=== PATIENT | male | born 1980 | race Caucasian/White ===

== ENCOUNTER 2016-10-10 00:36 | Emergency (ER) | payer OTHER ==
[~2016-10-10] VITALS: Ht 180.3 cm; Wt 163.1 kg
[~2016-10-10 00:36] MED LIST: CETI10TA84 PO; GABA1CAP4 PO; GLC500 PO; LSN/10125 PO
[2016-10-10 00:44] VITALS: TEMP 36.9; Ht 180.3 cm; Wt 163.1 kg
[2016-10-10] MEDS ORDERED: LORAZEPAM 2 MG/ML 1 ML VIAL IV STA (00:58)
[2016-10-10 01:11] VITALS: O2SAT 97
[2016-10-10 01:26] LABS: BASO % 0.6 %; BASO ABS # 0.07 K/uL (0-0.2); COMPLETE YES; HEMATOCRIT 44.3 % (42-52); IG% 0.1 %; LYMPH % 37.5 %; LYMPH ABS # 4.37 K/uL (1.2-3.4); MEAN CORPUSCULAR HGB CONC 35.7 g/dl (32-36); MEAN PLATELET VOLUME 10.4 fL (7.4-10.4); MONO % 7.8 %; PLATELET COUNT 341 K/uL (130-400); RED BLOOD COUNT 5.09 M/uL (4.7-6.1); WHITE BLOOD COUNT 11.66 K/uL (4.8-10.8)
[2016-10-10] MEDS ORDERED: EFFSR75 PO (01:40)
[2016-10-10 02:02] LABS: ALT/SGPT 59 U/L (12-78); BLOOD UREA NITROGEN 12 mg/dl (7-18); CALCIUM 8.6 mg/dl (8.5-10.1); CARBON DIOXIDE 27 mmol/L (21-32); CHLORIDE 105 mmol/L (98-107); GLUCOSE 137 mg/dl (70-99); SODIUM 141 mmol/L (136-145)
[2016-10-10 02:03] LABS: ALKALINE PHOSPHATASE 110 U/L (45-117)
[2016-10-10 02:12] LABS: POTASSIUM 3.7 mmol/L (3.5-5.1)
[2016-10-10 02:16] LABS: AST/SGOT 32 U/L (15-37)
[2016-10-10 02:20] VITALS: BP 136/80; PULSE 66; O2SAT 98
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
--- NOTE | 2016-10-10 02:26 | EMERGENCY ROOM VISIT NOTE ---
ED Visit Note First contact with patient: 00:43 I saw this patient in conjunction with Sandra Schmitt PA-C. I agree with her decision making and treatment plan.
[2016-10-10] MEDS ORDERED: ATIVAN 1MG HOMEPACK PO ONE (02:30)
--- NOTE | 2016-10-10 06:29 | DIAGNOSTIC IMAGING REPORT ---
CHEST ONE VIEW PORTABLE CLINICAL HISTORY: CHEST PAIN dyspnea COMPARISON STUDY: 09/07/2014 FINDINGS: The bones soft tissues and hemidiaphragms are normal. The cardiomediastinal silhouette is normal. The lungs are clear. The pulmonary vasculature is normal. Fullness superior mediastinum unchanged in the prior study. This most likely secondary to patient positioning as well as body habitus IMPRESSION: Negative chest. Electronically signed by: Naren Jones M.D. 10/10/2016 6:27 AM Dictated Date/Time: 10/10/2016 6:27 AM
== END 2016-10-10 02:35 | disposition home or self-care (01) ==
LOC: C.EDB 00:36
DX: F41.9 Anxiety disorder, unspecified (principal); E11.65 Type 2 diabetes mellitus with hyperglycemia; I10 Essential (primary) hypertension; Z79.82 Long term (current) use of aspirin; Z79.84 Long term (current) use of oral hypoglycemic drugs; Z79.899 Other long term (current) drug therapy; Z88.0 Allergy status to penicillin; Z88.8 Allergy status to other drugs, medicaments and biological substances; Z83.3 Family history of diabetes mellitus; Z82.49 Family history of ischemic heart disease and other diseases of the circulatory system

== ENCOUNTER 2016-10-20 22:27 | Emergency (ER) | payer OTHER ==
[~2016-10-20] VITALS: Ht 180.3 cm; Wt 163.0 kg
[~2016-10-20 22:27] MED LIST changes: -CETI10TA84 PO; +EFFSR75 PO; -GABA1CAP4 PO
[2016-10-20 22:28] VITALS: Ht 180.3 cm; Wt 163.0 kg
--- NOTE | 2016-10-20 22:44 | EMERGENCY ROOM VISIT NOTE ---
History Report prepared by Primitivo: Blade Diez Under the Supervision of: Dr. Marcos Naylor M.D. First contact with patient: 22:32 Chief Complaint: WOUND DEHISCENCE Stated Complaint: BELLY BUTTON DISCHARGE, BLEED History of Present Illness The patient is a 36 year old male who presents to the Emergency Room with complaints of persistent belly button discharge that started a few weeks ago. The patient has had similar symptoms in the past where he was able to resolve the symptoms with keeping the area clean and dry. He notes that this time when the foul odor started he tried to keep it clean and dry but his symptoms kept worsening. He presented to his PCP 5 days ago who recommended he try Neosporin on the area. He notes that his symptoms continued to get worse. He also noted some blood in the area. He presented to the ED tonight for further evaluation since his symptoms were getting worse. He notes that he is pre-diabetic and the only change in his medications was adding Ativan which he hasn't taken that many doses of yet. He denies blood in his urine, nausea, vomiting, fevers, or pain at this time. Source of History: patient Onset: few weeks ago Position: abdomen Timing: other (persistent) Associated Symptoms: No fevers, No nausea, No vomiting Note: Other associated symptoms: foul odor Denies: blood in urine, pain Review of Systems See HPI for pertinent positives & negatives. A total of 6 systems reviewed and were otherwise negative. Past Medical & Surgical Medical Problems: (1) Asthma, Unspecified (2) Diab Afia Wo Compl, Type Ii Or Unspec Type, Not Uncntrld (3) Hypertension Nos (4) Morbid obesity with BMI of 50.0-59.9, adult Social History Problems: (1) Diab Afia Wo Compl, Type Ii Or Unspec Type, Not Uncntrld Family History Diabetes mellitus Heart disease Hypertension Social History Smoking Status: Never Smoker Alcohol Use: none Drug Use: none Marital Status: single Occupation Status: disabled Current/Historical Medications Scheduled Cephalexin Monohydrate (Keflex), 500 MG PO TID Clotrimazole (Lotrimin 1%), 1 APPLN EXT BID Hctz/Lisinopril (Lisinopril/Hctz 10/12.5 Mg), 1 TAB PO DAILY Metformin HCl (Metformin HCl), 500 MG PO BID Venlafaxine Hcl (Effexor Extended Rel), 75 MG PO DAILY Allergies Coded Allergies: Penicillins (Unverified Allergy, Mild, CHILDHOOD REACTION, 10/10/16) Fluoxetine (Verified Allergy, Unknown, ., 10/10/16) Physical Exam Vital Signs Date Time Temp Pulse Resp B/P Pulse Ox O2 Delivery O2 Flow Rate FiO2 10/20/16 23:06 100 18 148/91 97 Room Air 10/20/16 23:06 36.6 100 18 148/91 97 10/20/16 22:28 36.6 103 18 158/95 97 Room Air Physical Exam GENERAL: Patient is well appearing and in no acute distress. HEENT: No acute trauma, normocephalic atraumatic, mucous membranes moist, no nasal congestion, no scleral icterus. NECK: No stridor, no adenopathy, no meningismus, trachea is midline. LUNGS: No dyspnea. Clear to auscultation and equal bilaterally. No wheeze, no rhonchi. HEART: Regular rate and rhythm. No murmurs, rubs, gallops appreciated. ABDOMEN: Soft, nontender, bowel sounds positive, no masses appreciated, no peritonitis. UMBILICUS: Erythematous / excoriated umbilicus with mild drainage, non-purulent , mild odor, no surrounding cellulitis. NEUROLOGIC: Alert and oriented, no acute motor or sensory deficits, no focal weakness, cranial nerves grossly intact. SKIN: No rash, no jaundice, no diaphoresis. Medical Decision & Procedures Medications Administered Medications (Trade) Dose Ordered Sig/Dimitri Route Start Time Stop Time Status Last Admin Dose Admin Clotrimazole (Lotrimin 1% Crm) 1 appln NOW ONCE EXT 10/20/16 22:45 10/20/16 22:46 DC 10/20/16 22:57 1 APPLN ED Course 2238: The patient was evaluated in room C10. A complete history and physical exam was performed. 2244: Ordered Clotrimazole 1 appln EXT. 225: Reevaluated the patient. Discussed results and discharge instructions: He verbalized understanding and agreement. The patient is ready for discharge. Medical Decision Pleasant 36 yr old male with what appears to be umbilical yeast infection. No evidence of abdominal issue. With his pre-diabetic state and obesity he is at risk for yeast and has had this before. Will treat with lotrimen and advised this could take some time to resolve. Given rx Keflex in case cellulitis developed though at current this is not needed. He is not septic. He has no TTP abdomen and no evidence abscess around umbilicus. Impression Primary Impression: Candidal skin infection Scribe Attestation The scribe's documentation has been prepared under my direction and personally reviewed by me in its entirety. I confirm that the note above accurately reflects all work, treatment, procedures, and medical decision making performed by me. Departure Information Dispostion Home / Self-Care Prescriptions Cephalexin Monohydrate (Keflex) 500 Mg Cap 500 MG PO TID for 7 Days, #21 CAP Prov: Marcos Naylor M.D. 10/20/16 Clotrimazole (LOTRIMIN 1%) 90 Appln/30 Gm Cr 1 APPLN EXT BID for 21 Days, #1 TUBE Prov: Marcos Naylor M.D. 10/20/16 Referrals Naren Choi M.D. (PCP) Forms HOME CARE DOCUMENTATION FORM, IMPORTANT VISIT INFORMATION, WORK / SCHOOL INSTRUCTIONS Patient Instructions ED Candidiasis Cutaneous, My [facility] Additional Instructions Use Lotrimen twice daily for 3 weeks, if no improvement after this follow up with primary provider. If redness starts around belly button on to abdomen start Keflex (antibiotic). If fevers, vomiting, pain, or other concerns return to ED or follow up with your primary care provider.
[2016-10-20] MEDS ORDERED: CLOTRIMAZOLE 1% CR 15 GM TUBE EXT ONE (22:45)
[2016-10-20] MEDS ORDERED: LTRCR30 EXT (22:48)
[2016-10-20] MEDS ORDERED: CEPH500C PO (22:48)
[2016-10-20 23:06] VITALS: BP 148/91; PULSE 100; TEMP 36.6; O2SAT 97
== END 2016-10-20 23:08 | disposition home or self-care (01) ==
LOC: C.EDB 22:28 → C.EDC 23:08
DX: B37.89 Other sites of candidiasis (principal); I10 Essential (primary) hypertension; E11.9 Type 2 diabetes mellitus without complications; J45.909 Unspecified asthma, uncomplicated; E66.01 Morbid (severe) obesity due to excess calories; Z68.43 Body mass index [BMI] 50.0-59.9, adult; Z79.84 Long term (current) use of oral hypoglycemic drugs; Z79.899 Other long term (current) drug therapy; Z88.0 Allergy status to penicillin; Z88.8 Allergy status to other drugs, medicaments and biological substances; Z83.3 Family history of diabetes mellitus; Z82.49 Family history of ischemic heart disease and other diseases of the circulatory system